=== PATIENT | female | born 1960 | race Caucasian/White ===

== ENCOUNTER 2023-08-08 14:00 | Emergency (ER) | payer OTHER ==
[~2023-08-08] VITALS: Ht 160 cm; Wt 86.4 kg
[2023-08-08 14:21] VITALS: BP 143/84; PULSE 83; TEMP 98; O2SAT 98
[2023-08-08] MEDS ORDERED: NAPR-56 PO (15:09)
[2023-08-08] MEDS ORDERED: ketorolac trometh inj. 60 MG/2 ML VIAL IM ONE (15:10)
[2023-08-08 15:27] VITALS: RESP 17
[2023-08-08] MEDS: ketorolac trometh. 30mg/ml inj. IM ONE (15:27)
== END 2023-08-08 15:36 | disposition home or self-care (01) ==
LOC: ER 14:01
DX: S93.602A Unspecified sprain of left foot, initial encounter (principal); W19.XXXA Unspecified fall, initial encounter; Y93.89 Activity, other specified; Y92.89 Other specified places as the place of occurrence of the external cause; Y99.0 Civilian activity done for income or pay
CPT/HCPCS: 73630; 96372; 99283; J1885